=== PATIENT | female | born 1975 | race Caucasian/White ===

== ENCOUNTER 2016-05-23 11:02 | Emergency (ER) | payer BC ==
[~2016-05-23] VITALS: Ht 165.1 cm; Wt 78.0 kg
[~2016-05-23 11:02] MED LIST: ACIPHEX20 MG PO; BENTYL10 MG PO; CELEXA20 MG PO; CIPRO500 MG PO; CLONAZEPAM0.5 MG PO; CYMBALTA20 MG PO; DULERA 200 MCG/13 GM IH; FLEXERIL10 MG PO; KLONOPIN0.5 M1 PO; KLONOPIN1 MG PO; LORTAB 5-325 M1 EACH PO; METAXALONE800 MG PO; NAPROSYN500 MG PO; PROTONIX40 MG PO; TYLENOL SINUS1 EA15 PO; ULTRAM50 MG PO; ZOFRAN ODT4 MG PO; ZOFRAN ODT8 MG PO; ZOFRAN8 MG PO; ZOLOFT25 MG PO
[2016-05-23 12:14] LABS: HEMATOCRIT 43.4 % (36.0-46.0); MCH 33.2 PG (29.0-34.0); MCHC 33.9 G/DL (30.0-36.0); MEAN PLAT.VOLUME 9.8 uM^3 (9.5-12.4); PLATELET COUNT 308 K/uL (156-360); RBC DIS.WIDTH-CV 12.4 % (11.8-14.6); RBC DIS.WIDTH-SD 43.8 % (39-53); RED BLOOD COUNT 4.43 M/uL (3.80-5.20); WHITE BLOOD COUNT 9.8 K/uL (4.1-10.2)
[2016-05-23 12:24] LABS: CHLORIDE 108 mEq/L (99-109); POTASSIUM 3.9 mEq/L (3.7-5.4); SODIUM 140 mEq/L (136-147)
[2016-05-23 12:26] LABS: GLUCOSE 95 mg/dL (70-99)
[2016-05-23 12:27] LABS: ANION GAP 14 MEQ/L (2-14)
[2016-05-23 12:30] LABS: GFR ESTIMATE (CALCULATED) > 59 mL/min/
[2016-05-23 12:31] LABS: UREA NITROGEN (BUN) 7 mg/dL (9-23)
[2016-05-23 12:34] LABS: TROP-I INTERPRETATION NEGATIVE; TROPONIN-I < 0.01 ng/mL (0.0-0.30)
[2016-05-23] MEDS ORDERED: VITAMIN D5000 UNI1 PO (13:12)
[2016-05-23 15:13] VITALS: BP 128/75
== END 2016-05-23 15:13 | disposition home or self-care (01) ==
LOC: EME 11:02
DX: R06.02 Shortness of breath (principal); R06.4 Hyperventilation; R07.9 Chest pain, unspecified; F17.200 Nicotine dependence, unspecified, uncomplicated
CPT/HCPCS: 71020; 80048; 84484; 85027; 93005; 99281; 99283